=== PATIENT | female | born 1985 | race Caucasian/White ===

== ENCOUNTER → 2016-07-09 | Outpatient (CLI) | payer OTHER | END | disposition home or self-care (01) | LOC: PTH.S 12:26 | DX: E28.9 Ovarian dysfunction, unspecified (principal) ==

== ENCOUNTER → 2016-07-13 | Outpatient (CLI) | payer OTHER | END | disposition home or self-care (01) | LOC: PTH.S 07-12 07:45 | DX: E28.9 Ovarian dysfunction, unspecified (principal) ==

== ENCOUNTER 2016-07-23 20:30 | Emergency (ER) | payer OTHER ==
--- NOTE | 2016-07-24 19:50 | ER ---
ADMIT: 07/23/2016 RM/LOC: ER [facility] MR#: [id number] [id number] [address] [address]BD[address] R[address] [place] [address] Emergency Room Report SEX: F AGE: 31 : 1985 DATE: 07/23/2016 HISTORY OF PRESENT ILLNESS: The patient is a 31-year-old female, with no chronic illness came to the ER with chief complaint of being stung by an insect about an hour ago. The patient states she was [place] soccer field when she felt that she was stung twice on the left arm and also once on the left chest and she took her shirt up, but she could not recognize any obvious insect. Per patient, possibly the insect flew away. The patient states the incident happened an hour ago and she denies any difficulty breathing or swelling. The patient denies any previous allergic reaction to food, to insect bites, or other allergens. PHYSICAL EXAMINATION: GENERAL: In the ER, the patient was in no pain or distress, sitting in the chair quietly. VITAL SIGNS: Normal. HEENT/NECK: There is no swelling of the uvula. The airways are patent. There is no swelling or rashes on her face or neck. Trachea is midline. CHEST: Clear bilaterally. HEART: Normal heart sounds. ABDOMEN: Soft. EXTREMITIES: There are 3 macular rashes; 2 on the left proximal medial arm and 1 on the left upper lateral chest, possible insect bite without any urticaria. The rest of the physical exam is noncontributory. The patient was reassured and was discharged to home with return precautions, follow up with the primary care doctor as needed. Hipolito Tracy MD/ josé antonoi JOB #: [id number] CC: Hipolito Tracy MD, Attending Physician Sae Quick MD, Family Physician
== END 2016-07-23 21:25 | disposition home or self-care (01) ==
LOC: ER 20:30
DX: S40.862A Insect bite (nonvenomous) of left upper arm, initial encounter (principal); S20.362A Insect bite (nonvenomous) of left front wall of thorax, initial encounter; Z90.49 Acquired absence of other specified parts of digestive tract; Z98.890 Other specified postprocedural states; Z88.0 Allergy status to penicillin; Z79.899 Other long term (current) drug therapy; W57.XXXA Bitten or stung by nonvenomous insect and other nonvenomous arthropods, initial encounter; Y92.322 Soccer field as the place of occurrence of the external cause

== ENCOUNTER → 2016-07-26 | Outpatient (CLI) | payer OTHER | END | disposition home or self-care (01) | LOC: PTH.S 12:38 | DX: Z32.00 Encounter for pregnancy test, result unknown (principal) ==